=== PATIENT | female | born 1940 | race Caucasian/White ===

== ENCOUNTER 2019-04-23 12:18 | Day surgery (SDC) | payer MEDICARE, SELFPAY ==
--- NOTE | 2019-04-23 | PATH_ITS ---
[facility] Accession Number: [id number] . 01 Material submitted: . cecum - CECAL POLYPS . 02 Diagnosis: Cecum, Polyps: Tubular adenoma x2. MRV 04/24/2019 1008 Local . 02 Electronically signed: . Aramis Gauthier MD, PhD, Pathologist NPI- [id number] . 01 Gross description: . CECAL POLYPS: Received in formalin are 2 fragment(s) of escobar, soft tissue measuring 0.2 x 0.2 x 0.2 cm to 0.3 x 0.2 x 0.2 cm submitted entirely in 1 cassette(s) /[facility] [place]/23/20196 Local . 02 Pathologist provided ICD-10: D12.0 . 02 CPT . 232302 Performed at: 01 [facility] [address] [id number] MD Joby Barrientos MD Phone: [phone] Performed at: [facility] [address] [place], [place] [id number] MD Mariely Fernandez MD Phone: [phone]
[2019-04-23 12:55] VITALS: BP 162/90; PULSE 93; RESP 15; TEMP 37; O2SAT 96; BMI 23.4
[2019-04-23] MEDS: SODIUM CHLORIDE 0.9% 1,000 ML 200 ML IV (13:04)
--- NOTE | 2019-04-23 13:59 | PM.HP.1 ---
History of Present Illness History of Present Illness Date Patient Seen: 04/23/19 Time Patient Seen: 13:59 Chief complaint: [id number] Narrative: Patient presents for colorectal screening. They are previous colonoscopy 5 years ago which was significant for 2 adenomatous polyps which were removed.. No personal or family history of colon cancer. On further history denies any recent gastrointestinal symptoms. No nausea, vomiting, abdominal pain, loss of appetite, unexplained weight loss, change in bowel habits, diarrhea, constipation, melena, hematochezia, or bright red blood per rectum. Patient History Family & Social History Family History Other Multiple adenomatous polyps Social History: household members spouse Tobacco & Substance use: Smoking Status Never smoker alcohol intake current alcohol intake frequency 0-2 drinks per day Substance Use Type does not use Meds Home Medications and Allergies Home Medications Medication Instructions Recorded Confirmed Type GLUCOSAMINE/CHONDRO ROBLERO A 1 tab PO Q DAY #2 08/11/10 04/23/19 History (Glucosamine-Chondroit Cplt) Turmeric (#TURMERIC) 1 pow NA QDAY #0 02/23/11 04/23/19 History [KIDNEY&LIVER CLEANSE] 2 tab PO Q DAY #0 05/27/12 04/23/19 History [CARDITONE] 1 tab PO Q DAY #0 10/10/15 04/23/19 History [CO-Q 10] 1 tab PO Q DAY #0 10/10/15 04/23/19 History [MILK THISTLE] 1 cap PO Q DAY #0 10/10/15 04/23/19 History melatonin 5 mg PO BEDTIME 04/23/19 04/23/19 History Allergies Allergy/AdvReac Type Severity Reaction Status Date / Time celecoxib [From CELEBREX] Allergy Severe HIVES AND Verified 04/23/19 12:45 FACIAL SWELLING oxaprozin [From DAYPRO] Allergy Severe HIVES AND Verified 04/23/19 12:45 FACIAL SWELLING Review of Systems Review of Systems Narrative: A 10 point review of systems is negative except as noted in the HPI Exam Vital Signs (past 8 hours): - 04/23/19 12:55 Temperature 98.6 F Pulse Rate 93 H Respiratory Rate 15 Blood Pressure 162/90 H Pulse Oximetry 96 Oxygen Delivery Method Room Air Narrative Exam Narrative: General-no acute distress, well nourished HEENT-moist mucous membranes, no scleral icterus Neck-supple, no lymphadenopathy Chest- non labored respirations, clear to auscultation bilaterally Cardiac-regular rate no peripheral edema Abdomen-soft, nontender, non distended Extremities-warm, well perfused Neurological-alert and oriented, no focal deficits Assessment & Plan Assessment and plan (1) Screening for colon cancer: Current visit: Yes Status: Acute Assessment & Plan narrative: The patient requires colorectal screening and colonoscopy is recommended. Technical details were discussed. Risks, benefits, alternatives explained. Risks including but not limited to myocardial infarction, aspiration, bleeding, pain, missed lesion, incomplete examination, need for further radiographic studies, colonic perforation, and need for major abdominal surgery were discussed. All questions were answered to their satisfaction, and they are in agreement with this plan.
[2019-04-23] MEDS: fentaNYL 250 MCG/5 ML INJ IV (14:02)
[2019-04-23] MEDS: MIDAZOLAM 5 MG/5 ML VIAL IV (14:02)
--- NOTE | 2019-04-23 14:03 | PM.OP.ENDO ---
Operative Date/Time/Diagnoses Date of procedure: 04/23/19 Time of procedure: 14:03 Pre-op diagnosis: History of adenomatous polyps Post-op diagnosis: same Procedure & Clinicians Study performed: Colonoscopy Same procedure as scheduled: Yes Indications: Adenomatous polyps 5 years ago Surgeon: Charles Patterson Procedure Notes SCOAP/Timeout: Performed Procedure in detail: Patient placed in left lateral decubitus position. Time out was performed. Procedural sedation was administered with Versed and Fentanyl. A rectal exam demonstrated no external hemorrhoids no internal masses. Colonoscopy scope was placed into the rectum and advanced through the colon to the cecum. The ileocecal valve was identified. The scope was then slowly withdrawn examining colon thoroughly in all directions. The colonoscopy was notable for the following 1. Cecal polyps benign-appearing less than 1 cm each x2 removed with Jumbo forceps hemostatic at completion 2. Sigmoid diverticulosis 3. Grade 1 internal hemorrhoids Scope withdrawal time: 6 Sedation minutes: 21 Findings: diverticulosis and polyp Specimen(s): other (Cecal polyp x2) Impression: Cecal polyp, diverticulosis Post-procedure Recommendations: Colonscopy in 5 years Disposition: same day surgery
[2019-04-23 14:30] VITALS: BP 137/74; PULSE 82; RESP 15; TEMP 37.1; O2SAT 96
[2019-04-23 14:35] VITALS: BP 121/73; PULSE 79; RESP 15; O2SAT 97
[2019-04-23 14:58] VITALS: BP 122/69; PULSE 80; RESP 16; TEMP 37.1; O2SAT 95
== END 2019-04-23 15:09 | disposition home or self-care (01) ==
PROVIDERS: Family Provider Nurse Practitioner; PCP Family Medicine; Referring Provider Family Medicine; Visit Provider Surgery
PROC: 0DJD8ZZ Inspection of Lower Intestinal Tract, Via Natural or Artificial Opening Endoscopic (ICD-10-PCS; CPT 45378; principal; 2019-04-23 13:45)
DX: K57.30 Diverticulosis of large intestine without perforation or abscess without bleeding (principal); K64.0 First degree hemorrhoids; D12.0 Benign neoplasm of cecum; Z12.11 Encounter for screening for malignant neoplasm of colon; Z86.010 Personal history of colon polyps
CPT/HCPCS: 45380; 99152; J2250; J3010

== ENCOUNTER → 2021-07-06 14:51 | Outpatient (CLI) | payer MEDICARE, SELFPAY ==
[2021-07-07 07:36] LABS: Immunoglobulin A 206 mg/dL (64-422)
[2021-07-07 15:44] LABS: Tissue Transglutaminase IgA <2 U/mL (0-3); Tissue Transglutaminase IgG <2 U/mL (0-5)
== END ==
PROVIDERS: Family Provider Nurse Practitioner; PCP Family Medicine; Referring Provider Internal Medicine Gastroenterology; Visit Provider Internal Medicine Gastroenterology
DX: R19.7 Diarrhea, unspecified (principal)
CPT/HCPCS: 36415; 82784; 83516

== ENCOUNTER → 2021-07-10 10:41 | Outpatient (CLI) | payer MEDICARE, SELFPAY | PROVIDERS: Family Provider Nurse Practitioner; PCP Family Medicine; Referring Provider Internal Medicine Gastroenterology; Visit Provider Internal Medicine Gastroenterology | DX: R19.7 Diarrhea, unspecified (principal) | CPT/HCPCS: 87045; 87177; 87899 ==

== ENCOUNTER → 2021-08-14 12:00 | Outpatient (CLI) | payer MEDICARE, SELFPAY ==
[2021-08-14 14:15] LABS: COVID19 -Nasal RAPID Negative (Negative)
== END ==
PROVIDERS: Family Provider Nurse Practitioner; PCP Family Medicine; Visit Provider Surgery
DX: Z20.822 Contact with and (suspected) exposure to COVID-19 (principal); Z01.812 Encounter for preprocedural laboratory examination
CPT/HCPCS: 87635; C9803

== ENCOUNTER 2021-08-30 09:48 | Day surgery (SDC) | payer MEDICARE, SELFPAY ==
[2021-08-30] VITALS (8 sets, daily range): BP systolic 133–145; BP diastolic 74–98; PULSE 72–93; RESP 11–17; TEMP 36.4–37.2; O2SAT 94–99; BMI 21.4
--- NOTE | 2021-08-30 | PATH_ITS ---
[facility] Accession Number: [id number] . 01 Material submitted: . PART A: small bowel - SMALL BOWEL PART B: gastrointestinal site - GASTRIC . 01 Clinical history: . A: R/O CELIAC SCREW . 01 Diagnosis: A. Small Bowel, Biopsy : Duodenal mucosa with no diagnostic abnormality. Negative for active inflammation, features of sprue, dysplasia, or malignancy. . B. Stomach, Biopsy: Antral mucosa with mild chronic gastritis. No evidence of Helicobacter on H/E stain. Negative for intestinal metaplasia. Negative for dysplasia and malignancy. MRV 09/01/2021 1221 Local . 01 Electronically signed: . Mariely Fernandez MD, Pathologist NPI- [id number] . 01 Gross description: . Part A: SMALL BOWEL: Received in formalin are 3 fragment(s) of escobar, soft tissue measuring 0.5 x 0.1 x 0.1 cm to 0.3 x 0.1 x 0.1 cm submitted entirely in 1 cassette(s) Part B: GASTRIC: Received in formalin are 4 fragment(s) of escobar, soft tissue measuring 0.3 x 0.2 x 0.1 cm to 0.2 x 0.1 x 0.1 cm submitted entirely in 1 cassette(s) /[facility] 08/31/2021 0531 Local . 01 Pathologist provided ICD-10: R63.4, R11.0 . 01 CPT . 554633, 655239 Specimen Comment: A courtesy copy of this report has been sent to [facility] Pathology Performed at: 01 [facility] [address] [place] [address] [address] [facility], [place], [place] [id number] MD Joby Barrientos MD Phone: [phone]
[2021-08-30] MEDS: SODIUM CHLORIDE 0.9% 1,000 ML 70 ML IV (11:39)
--- NOTE | 2021-08-30 12:57 | PM.HP.1 ---
History of Present Illness History of Present Illness Date Patient Seen: 08/30/21 Time Patient Seen: 12:57 Chief complaint: SDC Narrative: Patient is a very pleasant 80-year-old female who presented for upper endoscopy. She has unfortunately experiencing copious diarrhea and weight loss. She has now lost over 15 lb. She did undergo colonoscopy 08/15/2021. Biopsies did reveal changes consistent with lymphocytic colitis. She does have a follow-up appointment to further discuss treatment. Due to her unintentional weight loss an upper endoscopy was still recommended. Patient History Family & Social History Family History Other Multiple adenomatous polyps Social History: household members spouse Tobacco & Substance use: Smoking Status Never smoker alcohol intake current alcohol intake frequency 0-2 drinks per day Substance Use Type does not use Meds Home Medications and Allergies Home Medications Medication Instructions Recorded Confirmed Type GLUCOSAMINE/CHONDRO ROBLERO A 1 tab PO Q DAY ##2 08/11/10 08/30/21 History (Glucosamine-Chondroit Cplt) Turmeric (#TURMERIC) 1 pow NA QDAY ##0 02/23/11 08/30/21 History [CARDITONE] 1 tab PO Q DAY ##0 10/10/15 08/30/21 History [CO-Q 10] 1 tab PO Q DAY ##0 10/10/15 08/30/21 History [MILK THISTLE] 1 cap PO Q DAY ##0 10/10/15 08/30/21 History melatonin 5 mg tablet 5 mg PO BEDTIME sleep 04/23/19 08/30/21 History loperamide 2 mg capsule cap PRN PRN Diarrhea 08/30/21 History Allergies Allergy/AdvReac Type Severity Reaction Status Date / Time celecoxib [From CELEBREX] Allergy Severe HIVES AND Verified 08/30/21 11:26 FACIAL SWELLING oxaprozin [From DAYPRO] Allergy Severe HIVES AND Verified 08/30/21 11:26 FACIAL SWELLING Review of Systems Review of Systems ROS: Yes All systems reviewed with the patient and are negative except as otherwise documented Exam Vital Signs (past 8 hours): - 08/30/21 11:41 Temperature 99 F Pulse Rate 81 Respiratory Rate 16 Blood Pressure 135/79 Pulse Oximetry 99 Oxygen Delivery Method Room Air Oxygen Delivery Method Room Air Const General: cooperative, well developed, well groomed and No acute distress Nutritional Appearance: thin Orientation: alert, awake and oriented x3 HENMT Head: normocephalic and atraumatic Resp Effort & Inspection: normal respiratory effort, able to speak in complete sentences and no audible wheezes Auscultation: clear to auscultation bilaterally Cardio Rate: regular rate Rhythm: regular rhythm GI Palpation: soft Auscultation: normal bowel sounds Assessment & Plan Assessment & Plan narrative: 1. Unintentional weight loss 2. Chronic diarrhea, new diagnosis of lymphocytic colitis EGD today, further recommendations to follow Time Spent With Patient Critical Care time: I spent a total of [] minutes of critical care time on this patient's care today; this time is exclusive of procedural time.
--- NOTE | 2021-08-30 13:21 | PM.OP.EGD ---
Operative Date/Time/Diagnoses Date of procedure: 08/30/21 Time of procedure: 13:16 Procedure Notes Procedure in detail: Surgeon: Renée Perez DO Procedure: Esophagogastroduodenoscopy with biopsy Preoperative diagnosis: 1. Diarrhea 2. Unintentional weight loss Postoperative diagnosis: 1. Normal-appearing esophagus 2. Hiatal hernia 3. Mild antral gastritis, biopsied to rule out H pylori 4. Normal-appearing small bowel biopsy to rule out celiac sprue Medications: Monitored anesthesia care Preanesthesia Assessment An H and P was performed/updated and the Px?s ASA class is 2. The procedure was discussed in detail with the patient. The potential risks and complications including infection, bleeding, missed lesions, perforation, need for surgery in case of perforation, prolonged hospital stay, and were explained. A brief question and answer period was allotted and once all questions were answered, informed consent was obtained. The patient was brought back to the procedure room and placed on standard monitoring. The patient?s vital signs were monitored continuously throughout the entire procedure. Prior to starting, a timeout was performed to confirm the patient?s identity, allergies, medications, and procedure. Procedure in detail The patient was placed in left lateral decubitus position and a bite block was inserted. The tip of the upper endoscope was placed into the mouth and advanced without difficulty under direct visualization into the esophagus. Esophagus: Unremarkable esophagus Stomach: Small hiatal hernia noted on retroflexion Mild antral gastritis, biopsied to rule out H pylori Duodenum: Normal-appearing duodenum, biopsied to rule out celiac sprue The patient tolerated the procedure well and will be brought back to the recovery area to be discharged once criteria are met. . Complications There were no complications and estimated blood loss was minimal. Recommendations: Resume previous diet Continue outPx medications Follow up pathology results Office follow up with Dr. Godinez as previously scheduled An emergency contact number was given to the patient for any complications related to the procedure
--- NOTE | 2021-08-30 13:33 | SUR.PHASEI ---
VSS, declines PO intake
--- NOTE | 2021-08-30 14:11 | SUR.PHASEII ---
Pt ready to go, up to [facility], steady when up.
--- NOTE | 2021-08-30 14:18 | SUR.PHASEII ---
Ride available, pt wanting to go, priority load with pt [facility] Pt left in stable condition.
== END 2021-08-30 14:20 | disposition home or self-care (01) ==
PROVIDERS: Family Provider Nurse Practitioner; PCP Family Medicine; Referring Provider Student in an Organized Health Care Education/Training Program; Visit Provider Student in an Organized Health Care Education/Training Program
PROC: 0DJ08ZZ Inspection of Upper Intestinal Tract, Via Natural or Artificial Opening Endoscopic (ICD-10-PCS; CPT 43235; principal; 2021-08-30 12:00)
DX: R19.7 Diarrhea, unspecified (principal); R63.4 Abnormal weight loss; K44.9 Diaphragmatic hernia without obstruction or gangrene; K29.50 Unspecified chronic gastritis without bleeding; Z01.812 Encounter for preprocedural laboratory examination; Z20.822 Contact with and (suspected) exposure to COVID-19
CPT/HCPCS: 43239; 87635; C9803; J2704

== ENCOUNTER → 2021-08-30 09:58 | Outpatient (CLI) | payer MEDICARE, SELFPAY ==
[2021-08-30 10:25] LABS: COVID19 -Nasal RAPID Negative (Negative)
== END ==
PROVIDERS: Family Provider Nurse Practitioner; PCP Family Medicine; Visit Provider Surgery
DX: Z01.812 Encounter for preprocedural laboratory examination (principal); Z20.822 Contact with and (suspected) exposure to COVID-19
CPT/HCPCS: 87635